=== PATIENT | male | born 1955 | race Caucasian/White ===

== ENCOUNTER 2017-10-25 23:25 | Inpatient (IN) ==
[2017-10-26 03:08] LABS: Troponin I Only 3.86 NG/ML (0.00-0.045)
[2017-10-26] MEDS ORDERED: METOPROLOL SUCCINATE XL 25 MG TABLET PO ONE (03:30)
[2017-10-26] MEDS ORDERED: HEPARIN DRIP 25,000 UNITS/500 ML PREMIX IV SCH (03:30)
[2017-10-26] MEDS ORDERED: DEXTROSE 50% 25 GM/50 ML VIAL IV PRN (03:32)
[2017-10-26] MEDS ORDERED: GLUCAGON 1 MG VIAL IM PRN (03:32)
[2017-10-26] MEDS ORDERED: MORPHINE 4 MG/1 ML VIAL IV PRN (03:38)
[2017-10-26] MEDS ORDERED: SODIUM CHLORIDE 0.9% 1,000 ML IV SCH ×2 (04:00→09:00)
[2017-10-26 05:04] LABS: Basophils # 0.1 10*3/uL (0.0-0.2); Basophils % 0.6 % (0.0-0.8); Eosinophils # 0.6 10*3/uL (0.0-0.87); Eosinophils % 6.4 % (0.00-10.9); Hematocrit 38.7 VOL% (42.0-52.0); Hemoglobin 12.8 GM/DL (14.0-18.0); Immature Granulocytes % 0.2 %; Immature Granulocytes Absolute 0.02 #; Lymphocytes # 2.5 10*3/uL (1.4-4.0); Lymphocytes % 26.9 % (21.2-54.2); Mean Corpuscular HGB Conc 33.1 GM/DL (32-36); Mean Corpuscular Hemoglobin 28 PG (27-34); Mean Corpuscular Volume 84.7 FL (87-102); Monocytes % 10.4 % (1.7-12.7); Neutrophils # 5.2 10*3/uL (1.4-7.4); Neutrophils % 55.5 % (38.7-73.9); Platelet Count 166 T/CUMM (130-400); Red Blood Count 4.57 MC/CUMM (3.8-5.5); Red Cell Distribution Width 13.9 % (9.3-17.3); White Blood Count 9.4 T/CUMM (4-12)
[2017-10-26 05:34] LABS: Albumin 3.4 G/DL (3.4-5.0); Calcium 9.2 MG/DL (8.5-10.1); Osmolality,Calculated 279.8 MOS/KG (273-304); Risk Ratio 2.8; Total Protein 6.5 G/DL (6.4-8.3)
[2017-10-26] MEDS: INSULIN LISPRO 100 UNIT/ML SUBCUT SCH ×3 (05:52→18:51)
[2017-10-26] MEDS ORDERED: diphenhydrAMINE CAP 25 MG CAPSULE PO ONE (08:48)
[2017-10-26] MEDS ORDERED: DIAZEPAM 5 MG TABLET PO ONE (08:48)
[2017-10-26] MEDS ORDERED: MAGNESIUM SULF RIDER 2 GM in PREMIX 1 EACH IV PRN (08:48)
[2017-10-26] MEDS ORDERED: POTASSIUM CHLORIDE RIDER 10 MEQ in PREMIX 1 EACH IV PRN (08:48)
[2017-10-26] MEDS ORDERED: ATORVASTATIN 80 MG TABLET PO SCH (09:00)
[2017-10-26] MEDS: CLOPIDOGREL 75 MG TABLET PO SCH (09:10)
[2017-10-26] MEDS: ASPIRIN EC 81 MG TABLET PO SCH (09:10)
[2017-10-26] MEDS: LISINOPRIL 20 MG TABLET PO SCH (09:13)
[2017-10-26] MEDS: CHOLECALCIFEROL 5,000 UNIT TABLET PO SCH (09:13)
[2017-10-26] MEDS: OMEGA 3 ACID ETHYL ESTERS 1 GM CAPSULE PO SCH ×2 (09:13→20:50)
[2017-10-26] MEDS: ASCORBIC ACID 500 MG TABLET PO SCH ×2 (09:13→20:49)
[2017-10-26] MEDS: GLIMEPIRIDE 2 MG TABLET PO SCH (09:14)
[2017-10-26] MEDS: PANTOPRAZOLE 40 MG VIAL IV SCH (09:24)
[2017-10-26] MEDS ORDERED: NITROGLYCERIN DRIP 50 MG/250 ML BOTTLE IV ONE (10:44)
[2017-10-26] MEDS ORDERED: fentaNYL 100 MCG/2 ML VIAL ONE (10:45)
[2017-10-26] MEDS ORDERED: MIDAZOLAM 2 MG/2 ML VIAL ONE (10:45)
[2017-10-26] MEDS ORDERED: VERAPAMIL 5 MG/2 ML VIAL ONE (10:45)
[2017-10-26] MEDS ORDERED: TIROFIBAN 5,000 MCG/100 ML PREMIX IV SCH (11:13)
[2017-10-26] MEDS ORDERED: ENOXAPARIN 60 MG/0.6 ML SYRINGE ONE (11:17)
[2017-10-26] MEDS ORDERED: CLOPIDOGREL 300 MG TABLET ONE (11:47)
[2017-10-26] MEDS ORDERED: TIROFIBAN 5,000 MCG/100 ML PREMIX IV ONE (11:53)
[2017-10-26] MEDS ORDERED: EZETIMIBE 10 MG TABLET PO SCH (21:00)
[2017-10-26] MEDS ORDERED: ROSUVASTATIN 20 MG TABLET PO SCH ×2 (21:00)
[2017-10-27] MEDS: INSULIN LISPRO 100 UNIT/ML SUBCUT SCH ×3 (01:34→12:35)
[2017-10-27 05:40] LABS: Basophils # 0.1 10*3/uL (0.0-0.2); Basophils % 0.7 % (0.0-0.8); Eosinophils # 0.7 10*3/uL (0.0-0.87); Eosinophils % 6.9 % (0.00-10.9); Hematocrit 38.4 VOL% (42.0-52.0); Hemoglobin 12.9 GM/DL (14.0-18.0); Immature Granulocytes % 0.3 %; Immature Granulocytes Absolute 0.03 #; Lymphocytes # 2.2 10*3/uL (1.4-4.0); Lymphocytes % 20.7 % (21.2-54.2); Mean Corpuscular HGB Conc 33.6 GM/DL (32-36); Mean Corpuscular Hemoglobin 28 PG (27-34); Mean Corpuscular Volume 83.3 FL (87-102); Mean Platelet Volume 11.7 FL (9.6-12.0); Monocytes # 1.1 10*3/uL (0.11-0.8); Neutrophils # 6.6 10*3/uL (1.4-7.4); Neutrophils % 61.4 % (38.7-73.9); Platelet Count 164 T/CUMM (130-400); Red Blood Count 4.61 MC/CUMM (3.8-5.5); Red Cell Distribution Width 14.3 % (9.3-17.3); White Blood Count 10.7 T/CUMM (4-12)
[2017-10-27 06:13] LABS: Albumin 3.3 G/DL (3.4-5.0); Bilirubin,Total 3.8 MG/DL (0.2-1.0); Calcium 9.2 MG/DL (8.5-10.1); Osmolality,Calculated 279.5 MOS/KG (273-304); Total Protein 6.3 G/DL (6.4-8.3)
[2017-10-27 06:15] LABS: Calcium 9.5 MG/DL (8.5-10.1); Osmolality,Calculated 279.5 MOS/KG (273-304)
[2017-10-27 06:16] LABS: CKMB % 6.7 %; Troponin I Only 4.58 NG/ML (0.00-0.045)
[2017-10-27] MEDS: CLOPIDOGREL 75 MG TABLET PO SCH (08:58)
[2017-10-27] MEDS: CHOLECALCIFEROL 5,000 UNIT TABLET PO SCH (08:58)
[2017-10-27] MEDS: LISINOPRIL 20 MG TABLET PO SCH (08:58)
[2017-10-27] MEDS: ASCORBIC ACID 500 MG TABLET PO SCH (08:58)
[2017-10-27] MEDS: PANTOPRAZOLE 40 MG VIAL IV SCH (08:59)
[2017-10-27] MEDS: ASPIRIN EC 81 MG TABLET PO SCH (08:59)
[2017-10-27] MEDS: OMEGA 3 ACID ETHYL ESTERS 1 GM CAPSULE PO SCH (08:59)
[2017-10-27] MEDS: GLIMEPIRIDE 2 MG TABLET PO SCH (08:59)
[2017-10-27 11:43] VITALS: BP 151/69
== END 2017-10-27 12:55 | disposition home or self-care (01) | DRG 247 ==
LOC: N.TELEN 10-26 00:44
PROVIDERS: ADMIT Family Medicine; ATTEND Family Medicine
PROC: CLCCHCL (ICD-10-PCS; 2017-10-26 11:15)